=== PATIENT | male | born 1985 | race Caucasian/White ===

== ENCOUNTER 2016-09-17 11:12 | Emergency (ER) | payer OTHER ==
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
[2016-09-17 11:32] VITALS: BP 154/68; PULSE 98; TEMP 98.4; BMI 24.1
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
== END 2016-09-17 13:00 | disposition home or self-care (01) ==
LOC: EDMC 11:12
DX: S39.012A Strain of muscle, fascia and tendon of lower back, initial encounter (principal); V49.50XA Passenger injured in collision with unspecified motor vehicles in traffic accident, initial encounter; Y93.9 Activity, unspecified; Y92.410 Unspecified street and highway as the place of occurrence of the external cause; S16.1XXA Strain of muscle, fascia and tendon at neck level, initial encounter
CPT/HCPCS: 72110; 99283